=== PATIENT | male | born 1995 | race African-American/Black ===

== ENCOUNTER 2019-01-06 11:53 | Emergency (ER) | payer BC ==
[~2019-01-06] VITALS: Ht 172.7 cm; Wt 75.0 kg
[2019-01-06] MEDS ORDERED: HYDROXYZINE 25MG TABLET PO ONE (13:45)
[2019-01-06 14:10] LABS: BASOPHILS % 0.3 % (0.0-2.0); HEMATOCRIT. 45.1 % (42.0-52.0); LYMPHOCYTES % 14.5 % (20.0-50.0); MEAN CORPUSCULAR HEMOGLOBIN 28.7 pg (28.0-32.0); MEAN CORPUSCULAR VOLUME 86.6 fL (80.0-94.0); MEAN PLATELET VOLUME 8.3 fl (7.4-10.4); MONOCYTES % 5.6 % (2.0-8.0); NEUTROPHILS % 79.6 % (40.0-76.0); PLATELET 209 x1000/uL (130-400); RED BLOOD CELL COUNT 5.21 mill/uL (4.7-6.1); RED CELL DISTRIBUTION WIDTH 12.3 % (11.6-14.6)
[2019-01-06 14:14] LABS: CHLORIDE 104 mEq/L (98-107)
[2019-01-06 14:18] LABS: ETHANOL BLOOD < 10 mg/dL
[2019-01-06 14:31] LABS: CLARITY URINE CLEAR (CLEAR); COLOR URINE YELLOW (YELLOW); KETONES URINE TRACE (NEGATIVE); LEUKOCYTE ESTERASE URINE NEGATIVE (NEGATIVE); NITRITE URINE NEGATIVE (NEGATIVE); OCCULT BLOOD URINE NEGATIVE (NEGATIVE); PH URINE 7.5 (4.5-8.0); PROTEIN URINE NEGATIVE (NEGATIVE); SPECIFIC GRAVITY URINE 1.004 (1.005-1.030); UROBILINOGEN URINE 0.2 E.U./dL (0.2-1.0)
[2019-01-06 15:01] LABS: *AMPHETAMINES SCREEN URINE NEGATIVE (NEGATIVE); *BARBITURATES SCREEN URINE NEGATIVE (NEGATIVE); *BENZODIAZEPINES SCREEN URINE NEGATIVE (NEGATIVE); *COCAINE SCREEN URINE NEGATIVE (NEGATIVE); METHADONE URINE SCREEN NEGATIVE (NEGATIVE); OPIATES URINE SCREEN NEGATIVE (NEGATIVE); PHENCYCLIDINE URINE SCREEN NEGATIVE (NEGATIVE)
[2019-01-06 15:02] LABS: CANNABINOID URINE SCREEN PRESUMTIVE POSITIVE (NEGATIVE)
[2019-01-06 15:56] VITALS: BP 128/80
== END 2019-01-06 16:00 | disposition home or self-care (01) ==
LOC: ER 11:53
DX: F41.1 Generalized anxiety disorder (principal); F31.9 Bipolar disorder, unspecified; F12.10 Cannabis abuse, uncomplicated; Z88.8 Allergy status to other drugs, medicaments and biological substances
CPT/HCPCS: 36415; 80305; 80307; 80320; 80329; 99284; G0480